=== PATIENT | male | born 1995 | race Caucasian/White ===

== ENCOUNTER 2017-06-20 10:06 | Emergency (ER) | payer BC, OTHER ==
[~2017-06-20] VITALS: Wt 107.3 kg
[~2017-06-20 10:06] MED LIST: NO MEDS
[2017-06-20] MEDS ORDERED: SOD CHLORIDE 0.9% 1,000 ML IV STA (10:36)
[2017-06-20] MEDS ORDERED: KETOROLAC 15 MG INJ IV STA (10:36)
[2017-06-20] MEDS ORDERED: ONDANSETRON 4 MG INJ IV STA (10:36)
[2017-06-20 10:55] LABS: ADD SCAN DIFF NO
[2017-06-20] MEDS ORDERED: DOXYCYCLINE 100 MG TAB PO ONE (11:00)
[2017-06-20 11:17] LABS: ALBUMIN/GLOBULIN RATIO 1.17; CREATININE 0.86 mg/dl (0.61-1.24); POTASSIUM 3.8 mmol/L (3.5-5.1); TOTAL PROTEIN 7.4 g/dl (6.1-8.1)
[2017-06-20 11:20] LABS: BASOPHILS % 0.3 % (0.0-2.0); EOSINOPHILS # 0.2 10^3/ul (0.0-0.5); EOSINOPHILS % 1.7 % (0.0-7.0); HEMATOCRIT 42.3 % (42.0-52.0); HEMOGLOBIN 14.3 g/dl (14.0-18.0); LYMPHOCYTES # 1.4 10^3/ul (0.8-2.9); LYMPHOCYTES % 13.9 % (15.0-51.0); MEAN CORPUSCULAR HEMOGLOBIN 31.4 pg (29.0-33.0); MEAN CORPUSCULAR HGB CONC 33.8 g/dl (32.0-37.0); MEAN CORPUSCULAR VOLUME 92.8 fl (82.0-101.0); MEAN PLATELET VOLUME 10.3 fl (7.4-10.4); MONOCYTE # 1.2 10^3/ul (0.3-0.9); MONOCYTES % 11.7 % (0.0-11.0); NEUTROPHIL # 7.2 10^3/ul (1.6-7.5); NEUTROPHILS % 72.2 % (39.0-77.0); PLATELET COUNT 266 10^3/UL (140-415); RED BLOOD COUNT 4.56 10^6/ul (4.70-6.10); RED CELL DISTRIBUTION WIDTH 12.6 % (11.5-14.5)
[2017-06-20 12:12] LABS: URINE BLOOD (Dip) POC Trace-intact (NEGATIVE)
[2017-06-20] MEDS ORDERED: LOPE2CAP PO (12:29)
--- NOTE | 2017-06-20 12:29 | ERD ---
ER Documentation Chief Complaint Date/Time DATE: 06/20/17 Chief Complaint Diarrhea, abdominal pain, nausea HPI The patient is a 22-year-old male who presents to the Emergency Department with complaint of diarrhea and abdominal pain. The patient reports that on Saturday, he spent much of the day at the [employer], where he decided to have lunch. Shortly afterwards he developed multiple episodes of watery diarrhea, which have persisted until today. He reports associated abdominal cramping and nausea, but no vomiting. He denies any black or bloody stools, dysuria, hematuria, flank pain, fevers, sweats, chills. Denies recent travel, stream water exposure, immunocompromised state or recent antibiotic use. The patient notes that he has tried several exro-[id number]-[id number] medications for symptomatic relief, including Pepto Bismol with no relief. Due to persistent watery diarrhea , intermittent abdominal cramping and mild nausea, the patient decided to present to the Emergency Department for evaluation. At this time, he rates his pain as 3/10. The pain is diffuse throughout the abdomen and does not radiate to the groin, back or chest. No other complaints at this time. ROS All systems reviewed and are negative except as per history of present illness. Medications Home Meds Active Scripts Loperamide Hcl* (Imodium*) 2 Mg Capsule, 2 MG PO .AFTER EA LOOSE BM Y for DIARRHEA, #10 TAB Prov:ABHIJIT GOODWIN PA-C 06/20/17 Reported Medications [No Meds] No Conflict Check 05/13/11 Allergies Allergies: Coded Allergies: No Known Allergies (Verified Allergy, Mild, 05/13/11) PMhx/Soc Medical and Surgical Hx: pt denies Surgical Hx History of Surgery: No Anesthesia Reaction: No Hx Neurological Disorder: No Hx Respiratory Disorders: Yes (ASTHMA) Hx Cardiac Disorders: No Hx Psychiatric Problems: No Hx Miscellaneous Medical Probl: No Hx Alcohol Use: No Hx Substance Use: No Hx Tobacco Use: No Smoking Status: Never smoker Physical Exam Vitals Vital Signs Date Time Temp Pulse Resp B/P Pulse Ox O2 Delivery O2 Flow Rate FiO2 06/20/17 12:59 98.6 79 19 118/65 100 Room Air 06/20/17 10:12 98.0 89 20 137/77 99 Physical Exam GENERAL: Well-developed, well-nourished, in no acute distress. Nontoxic. HEENT: Head is normocephalic, atraumatic. No scleral pallor or icterus. Pupils equal, round and reactive to light. Extraocular movements intact. Conjunctiva pink. Moist mucous membranes. NECK: Supple. No masses, no tenderness, no lymphadenopathy. Full range of motion. RESPIRATORY: Lungs are clear to auscultation bilaterally. Equal breath sounds. Normal expiratory effort. CARDIOVASCULAR: Regular rate and rhythm. S1 and S2 normal. GASTROINTESTINAL: Abdomen is soft, nontender, and nondistended. No guarding, no rebound tenderness. Normal bowel sounds. No gross peritonitis. No tenderness at McBurney's point. FLANK: No CVA tenderness, no mass or swelling. BACK: No midline tenderness. EXTREMITIES: No clubbing, cyanosis, or edema. Normal skin perfusion. Moving all extremities. Muscle tone is normal. No focal swelling or erythema. Distal pulses are palpable, 2+ bilaterally. Capillary refill is less than 2 seconds. NEUROLOGIC: The patient is alert, awake, and oriented x 3. No focal neurologic deficits. Speech is normal. INTEGUMENT: Skin is clean, dry and intact. No rashes, lesions or petechiae present. PSYCHIATRIC: Appropriate; Cooperative. Result Diagram: 06/20/17 1045 06/20/17 1045 Results 24 hrs Laboratory Tests Test 06/20/17 10:45 06/20/17 12:17 White Blood Count 10.010^3/ul Red Blood Count 4.5610^6/ul Hemoglobin 14.3g/dl Hematocrit 42.3% Mean Corpuscular Volume 92.8fl Mean Corpuscular Hemoglobin 31.4pg Mean Corpuscular Hemoglobin Concent 33.8g/dl Red Cell Distribution Width 12.6% Platelet Count 27117^3/UL Mean Platelet Volume 10.3fl Neutrophils % 72.2% Lymphocytes % 13.9% Monocytes % 11.7% Eosinophils % 1.7% Basophils % 0.3% Nucleated Red Blood Cells % 0.0/100WBC Neutrophils # 7.210^3/ul Lymphocytes # 1.410^3/ul Monocytes # 1.210^3/ul Eosinophils # 0.210^3/ul Basophils # 0.010^3/ul Nucleated Red Blood Cells # 0.010^3/ul Sodium Level 148mmol/L Potassium Level 3.8mmol/L Chloride Level 109mmol/L Carbon Dioxide Level 24mmol/L Anion Gap 19 Blood Urea Nitrogen 13mg/dl Creatinine 0.86mg/dl Glucose Level 102mg/dl Calcium Level 9.0mg/dl Total Bilirubin 0.0mg/dl Direct Bilirubin 0.00mg/dl Indirect Bilirubin 0.0mg/dl Aspartate Amino Transf (AST/SGOT) 38IU/L Alanine Aminotransferase (ALT/SGPT) 70IU/L Alkaline Phosphatase 52IU/L Total Protein 7.4g/dl Albumin 4.0g/dl Globulin 3.40g/dl Albumin/Globulin Ratio 1.17 Lipase 52U/L Bedside Urine pH (LAB) 5.5 Bedside Urine Protein (LAB) Negative Bedside Urine Glucose (UA) Negative Bedside Urine Ketones (LAB) Negative Bedside Urine Blood Trace-intact Bedside Urine Nitrite (LAB) Negative Bedside Urine Leukocyte Esterase (L Negative Current Medications Medications (Trade) Dose Ordered Sig/Omer Route PRN Reason Start Time Stop Time Status Last Admin Dose Admin Sodium Chloride (NS) 1,000 ml @ 1,000 mls/hr Q1H STAT IV 06/20/17 10:36 06/20/17 11:35 DC 06/20/17 10:46 Ondansetron HCl (Zofran Inj) 4 mg ONCE STAT IV 06/20/17 10:36 06/20/17 10:39 DC 06/20/17 10:47 Ketorolac Tromethamine (Toradol) 15 mg ONCE STAT IV 06/20/17 10:36 06/20/17 10:39 DC 06/20/17 10:47 Doxycycline Hyclate (Vibramycin) 300 mg ONCE ONCE PO 06/20/17 11:00 06/20/17 11:01 DC 06/20/17 10:53 Loperamide HCl (Imodium Cap) 4 mg ONCE ONCE PO 06/20/17 12:30 06/20/17 12:31 DC 06/20/17 12:35 Procedures/MDM This is a 22-year-old male presenting to the Emergency Department with complaint of 5-days of multiple episodes of watery diarrhea that began after eating at the [employer]. He had no significant abnormalities noted on physical examination, and vital signs were normal. Abdominal examination benign, with no tenderness, no guarding, no rebound tenderness, no gross peritonitis. The differential diagnosis includes, but is not limited to, appendicitis, Crohn's disease, diverticulitis, intra-abdominal abscess, Meckel' s diverticulum, ischemic colitis, mesenteric ischemia, inguinal hernia , gastroenteritis, infectious diarrhea, parasitic etiology, dietary disturbances, food allergy, bowel obstruction, urinary tract infection, viral illness, inflammatory bowel disease, hemolytic uremic syndrome, gastritis, cholecystitis , PUD, peritonitis, pancreatitis, perforated viscus, mesenteric ischemia, diverticulitis. Laboratory analysis revealed no leukocytosis. Hemoglobin and hematocrit are stable, no anemia noted. No severe electrolyte abnormalities. Platelets normal. No evidence of prerenal azotemia or acute kidney injury. Urinalysis revealed no nitrites, no urine leukocyte esterase, no urinary tract infection. Patient is tolerating POs and well-appearing. Fluids, Toradol, Zofran administered. Stool sample requested of patient in order to perform further studies, but he did not have any bowel movements while in the ED. After rest and administration of fluids and medications, the patient reports no new complaints. He was given a dose of 300 mg Doxycycline (to cover for Cholera) in the ED. Upon my review and interpretation of the patient's presentation and overall ER course, I believe the patient's symptoms are most consistent with diarrhea and abdominal cramping. Given history of patient's symptoms, it is possible his symptoms are secondary to Cholera. Doxycycline 300 mg PO x 1 administered in the ED. Loperamide 4 mg PO x 1 administered as well (prior to discharge). The patient is well-appearing and tolerating POs. He has had no episodes of diarrhea while in the ED. Low suspicion for C. diff, as the patient has no recent antibiotic use. Doubt traveler's diarrhea, patient has had no recent travel. Doubt parasitic infection, patient has had no stream water or immunocompromised status. Doubt ischemic bowel, no pain out of proportion to examination. Low suspicion for appendicitis, as patient has no leukocytosis, no vomiting, is tolerating POs, abdominal pain improved, no McBurney point tenderness. No current evidence of acute/surgical abdomen, severe dehydration, or any other emergent medical condition that requires further in hospital evaluation or admission. At this time, the patient is in stable condition and therefore he can be discharged home with strict return precautions for signs of deteriorating or worsening condition. The patient is advised to follow up with his PMD within 1- 2 days for reevaluation and further management, or return to the ER sooner for any new or worsening symptoms, including inability to tolerate POs, return of or worsening abdominal pain, altered mental status, neck pain/stiffness, persistent vomiting, persistent fevers greater than 100.4 F, or any other concerning medical condition. I shared my medical decision making and plan with the patient at length and in great detail, and he verbally understands and agrees with the plan for further observation and care as an outpatient. At the time of discharge, all questions were answered. Departure Diagnosis: Primary Impression: Diarrhea Diarrhea type: unspecified type Qualified Code: R19.7 - Diarrhea, unspecified type Additional Impression: Abdominal cramping Condition: Stable Patient Instructions: Diet, Vomiting Or Diarrhea [6Yr-Adult], Self-Care for Vomiting and Diarrhea, Treating Diarrhea, Vomiting And Diarrhea, Nonspecific ( Adult) Additional Instructions: Call your primary care doctor TOMORROW for an appointment during the next 2-3 days.See the doctor sooner or return here if your condition worsens before your appointment time. ABHIJIT GOODWIN PA-C Jun 20, 2017 12:28
[2017-06-20] MEDS ORDERED: LOPERAMIDE 2 MG CAP PO ONE (12:30)
[2017-06-20 12:59] VITALS: BP 118/65; PULSE 79; RESP 19; TEMP 98.6
== END 2017-06-20 13:00 | disposition home or self-care (01) ==
LOC: FTE 10:06
DX: R19.7 Diarrhea, unspecified (principal); J45.909 Unspecified asthma, uncomplicated; R10.9 Unspecified abdominal pain
CPT/HCPCS: 36415; 80053; 81003; 83690; 85025; 96374; 96375; 99284; J1885; J2405; J7030